=== PATIENT | female | born 1955 | race Caucasian/White ===

== ENCOUNTER 2021-08-17 14:16 | Emergency (ER) | payer BC, OTHER ==
[2021-08-17 14:56] LABS: Hematocrit 41.2 % (36.0-45.0); Lymphocytes % 8.5 % (15.3-44.8); MPV 11.1 fL (7.6-11.3); RBC Red Blood Cell Count 4.78 M/uL (3.86-4.86)
[2021-08-17 14:57] LABS: Absolute Lymphocytes (CBC) 0.9 K/uL (0.7-4.9); Basophils % 0.5 % (0-1.3)
[2021-08-17 15:08] LABS: Albumin 3.7 g/dL (3.4-5.0); Bilirubin Direct 0.4 mg/dL (0-0.2); Potassium 4.1 mmol/L (3.5-5.1)
[2021-08-17] MEDS ORDERED: MORPHINE 4 MG/ML SYR ONE (15:09)
[2021-08-17] MEDS ORDERED: NA CHLORIDE 0.9% 1,000 ML ONE (15:10)
[2021-08-17] MEDS ORDERED: ONDANSETRON 4 MG/2 ML VIAL ONE (15:10)
--- OUTSIDE RECORDS SUMMARY | 2021-08-17 15:12 | XMS REPORT | Continuity of Care Document ---
:1955 Author Organization [facility] t Address [address] Kat [address] [place] [id number] Care Team Providers Name Role Phone Pcp, Does Not Have A Primary Care Physician Frantz COREA, T Attending Clinician Unavailable Provider, [facility] Attending Clinician Unavailable Ralph JOHNSON Attending Clinician RALPH Attending Clinician Unavailable Doctor Unassigned, Name Attending Clinician Unavailable Payers Payer Name Policy Type Policy Number Effective Date Expiration Date S ource Problems Condition Condition Condition Status Onset Resolution Last Treating Co mments Source Name Details Category Date Date Treatment Clinician Date No known No known Disease Unive rs active active ity of problems problems [facility] Allergies, Adverse Reactions, Alerts Allergy Allergy Status Severity Reaction(s) Onset Inactive Treating Comm ents Source Name Type Date Date Clinician Septra Propensi Active Hives Univers I.V. ty to 05-15 ity of adverse 00:00: [place] reaction 00 [facility]ly [facility] SEPTRA DRUG Active High Hives Univers I.V. 05-15 ity of 00:00: [place] 00 [facility] TERBINAF DRUG Active Med Hives Univers INE INGREDI 9 ity of 00:00: [place] 00 [facility] Terbinaf Propensi Active Hives Univer s ine ty to 05-15 ity of adverse 00:00: [place] reaction 00 [facility]ly [facility] NO KNOWN Drug Active Univers ALLERGIE Class ity of S [facility] Social History Social Habit Start Date Stop Date Quantity Comments Source Exposure to Not sure [facility] SARS-CoV-2 (event) Medica l Branch Sex Ass[birth year] At [birth year] [facility] [place] 00:00:00 00:00:00 Medical Branch Smoking Status Start Date Stop Date Source Unknown if ever smoked [facility] Medications Ordered Filled Start Stop Current Ordering Indication Dosage Frequency Signature Comments Components Source Medication Medication Date Date Medication? Clinician (SIG) Name Name ATENOLOL Yes 75mg Take 75 mg Uni vers ORAL 9-05 by mouth. ity of 15:08: [address] Thyroid, Yes 120mg Take 120 Univ ers Pork, (EMERGENCY MANAGEMENT DIRECTOR 9-05 mg by ity of THYROID) 15:08: mouth. [place] 120 mg 52 Medical tablet Branch ATENOLOL Yes 75mg Take 75 mg Uni vers ORAL 9-05 by mouth. ity of 15:08: [address] Thyroid, Yes 120mg Take 120 Univ ers Pork, (EMERGENCY MANAGEMENT DIRECTOR 9-05 mg by ity of THYROID) 15:08: mouth. [place] 120 mg 52 Medical tablet Branch ATENOLOL Yes 75mg Take 75 mg Uni vers ORAL 9-05 by mouth. ity of 15:08: [address] Thyroid, Yes 120mg Take 120 Univ ers Pork, (EMERGENCY MANAGEMENT DIRECTOR 9-05 mg by ity of THYROID) 15:08: mouth. [place] 120 mg 52 Medical tablet Branch Vital Signs Vital Name Observation Time Observation Value Comments Source Systolic blood 2021-05-15 15:07:00 147 mm[Hg] Univer sity of pressure [facility] Diastolic blood 2021-05-15 15:07:00 83 mm[Hg] Unive rsity [facility] [place] Heart rate 2021-05-15 15:07:00 97 /min [facility] Body temperature 2021-05-15 15:07:00 37.22 [facility]relis [facility] Res[facility] rate 2021-05-15 15:07:00 20 /min [facility] Body height 2021-05-15 15:07:00 160 cm [facility] Body weight 2021-05-15 15:07:00 56.7 kg [facility] BMI 2021-05-15 15:07:00 22.14 kg/m2 [facility] Oxygen saturation in 2021-05-15 15:07:00 97 /min [facility] Arterial blood by [facility] Pulse oximetry [place] Procedures Procedure Date / Time Performed Performing Clinician Sour e ASSIGNMENT OF BENEFITS 2021-05-15 14:47:59 Doctor Unassigned, No [facility] Encounters Start End Encounter Admission Attending Care Care Encounter Source Date/Time Date/Time Type Type Clinicians Facility Department ID 2021-05-16 2021-05-16 Letter VALERIA Landry [id number] Univers 00:00:00 00:00:00 (Out) Chloe SANDOVAL [id number] [facility] [id number] Master as [phone] [facility] 019 Branch 2021-05-15 2021-05-15 Urgent Provider, Saurav [facility] [id number] Univers 09:52:23 10:34:09 Juan Diego Goff [facility] [id number] ity of [place] [id number] Master as Mendez?Blea [phone] [address] Medical Office Building 2021-05-15 2021-05-15 [facility] [id number] Univers 10:00:00 10:00:00 JUAN DIEGO ity [facility] 2021-05-15 2021-05-15 Orders Doctor SHAW [id number] Univers 00:00:00 00:00:00 Only UnassignedJOSYY [id number] ity of [place] [facility] [id number] Master as [phone] [facility] 009 Branch 2021-05-15 2021-05-15 Letter Doctor SHAW [id number] Univers 00:00:00 00:00:00 (Out) Unassigned, JAIME [id number] ity of [place] [facility] [id number] Master as [phone] [facility] 044 Branch 2021-05-15 2021-05-15 Letter Doctor SHAW [id number] Univers 00:00:00 00:00:00 (Out) Unassigned, JAIME [id number] ity of [place] [facility] [id number] Master as [phone] [facility] 044 Branch Results This patient has no known results.
--- NOTE | 2021-08-17 15:35 | RAD REPORT ---
EXAM DESCRIPTION: CTStone Protocol - 08/17/2021 3:22 pm CLINICAL HISTORY: FLANK PAIN COMPARISON: No comparisons TECHNIQUE: CT of the abdomen and pelvis was performed. All CT scans are performed using dose optimization technique as appropriate and may include automated exposure control or mA/KV adjustment according to patient size. FINDINGS: Lower chest: Probable mitral annuloplasty. Cardiomegaly. Liver: No acute abnormality or suspicious lesions. Biliary: No biliary ductal dilatation. Stomach: No significant focal abnormality. Duodenum: No significant focal abnormality. Pancreas: No significant abnormality. Spleen: No significant abnormality. Adrenal: No suspicious lesions. Kidney/ureter: Moderate left-sided hydronephrosis is present. This extends to the UPJ. No renal calcu li. No ureteral calculi or dilatation. Retroperitoneum: No retroperitoneal adenopathy. Vascular: No aneurysm. Bowel: No significant focal abnormality. Peritoneum: No ascites or free air. Bladder: Grossly unremarkable. Reproductive: No adnexal masses. Bones: No acute fracture. Disc height loss at L5-S1 . Other: n/a IMPRESSION: Moderate left-sided hydronephrosis with transition at the left ureteropelvic junction. N o obstructing stone or mass is appreciated. This could be secondary to a stricture or occult mass. Re commend urologic referral/consultation.
[2021-08-17 16:16] LABS: Urine Blood Trace-intact (Negative); Urine Glucose Negative (Negative); Urine Protein Negative (Negative); Urine Specific Gravity 1.025 (1.005-1.030)
--- NOTE | 2021-08-17 16:35 | ER ---
Nurse's Notes [facility] Name: Shobha Darden Age: 66 yrs Sex: Female : 1955 Arrival Date: 08/17/2021 Time: 14:21 Bed 15 Private MD: Diagnosis: Unspecified hydronephrosis-moderate left sided Presentation: 08/17 14:25 Chief complaint: Patient states: left sided flank pain radiating to the abdomen causing jh5 vomiting. Pt doubled over in pain. Coronavirus screen: Vaccine status: Patient reports receiving the 2nd dose of the covid vaccine. Client denies travel out of the [place] in the last 14 days. Ebola Screen: Patient negative for fever greater than or equal to 101.5 degrees Fahrenheit, and additional compatible Ebola Virus Disease symptoms Patient denies exposure to infectious person. Patient denies travel to an Ebola-affected area in the 21 days before illness onset. No symptoms or risks identified at this time. Initial Sepsis Screen: Does the patient meet any 2 criteria? No. Patient's initial sepsis screen is negative. Does the patient have a suspected source of infection? No. Patient's initial sepsis screen is negative. Risk Assessment: Do you want to hurt yourself or someone else? Patient reports no desire to harm self or others. Onset of symptoms was August 17, 2021 at 04:00. 14:25 Method Of Arrival: Ambulatory [facility] 14:25 Acuity: LEONORA 3 jh5 Triage Assessment: 14:32 General: Appears distressed, uncomfortable, slender, well groomed, well developed, well jh5 nourished, Behavior is cooperative, appropriate for age, anxious. Pain: Complains of pain in back and abdomen. Historical: - Allergies: 14:30 Lamisil; jh5 14:30 Sulfacetamide Sodium; jh5 - Immunization history:: Adult Immunizations. - Social history:: Smoking status: Patient denies any tobacco usage or history of. Screenin:32 Abuse screen: Denies threats or abuse. Denies injuries from another. Nutritional 5 screening: No deficits noted. Tuberculosis screening: No symptoms or risk factors identified. Fall Risk None identified. Assessment: 15:19 General: Appears in no apparent distress. uncomfortable, Behavior is calm, cooperative, jd3 appropriate for age. Pain: Complains of pain in left flank Quality of pain is described as tender. Neuro: Level of Consciousness is awake, alert, obeys commands, Oriented to person, place, time, situation. Cardiovascular: Capillary refill < 3 seconds Patient's skin is warm and dry. Respiratory: Airway is patent Respiratory effort is even, unlabored, Respiratory pattern is regular, symmetrical, Denies cough, shortness of breath. GI: Abdomen is flat, non-distended, Abd is soft X 4 quads Reports upper abdominal pain, nausea, vomiting. : No signs and/or symptoms were reported regarding the genitourinary system. EENT: No signs and/or symptoms were reported regarding the EENT system. Derm: Skin is intact, Skin is dry, Skin is normal, Skin temperature is warm. Musculoskeletal: Circulation, motion, and sensation intact. Range of motion: intact in all extremities. 16:25 Reassessment: Patient appears in no apparent distress at this time. No changes from [facility] previously documented assessment. Patient and/or family updated on plan of care and expected duration. Pain level reassessed. Patient is alert, oriented x 3, equal unlabored respirations, skin warm/dry/pink. 16:59 Reassessment: Patient appears in no apparent distress at this time. Patient and/or jd3 family updated on plan of care and expected duration. Pain level reassessed. Patient is alert, oriented x 3, equal unlabored respirations, skin warm/dry/pink. even and steady gait upon discharge. reported understanding of discharge instructions. Vital Signs: 14:25 BP 145 / 91; Pulse 51; Resp 18; Temp 98.6; Pulse Ox 99% ; Weight 54.43 kg; Height 5 ft. 5 3 in. (160.02 cm); 16:21 BP 140 / 70 Supine; Pulse 73; Resp 18 S; Temp 98.1(O); Pulse Ox 100% ; al4 16:25 BP 140 / 70; Pulse 85; Resp 17 S; Pulse Ox 100% on R/A; jd3 14:25 Body Mass Index 21.26 (54.43 kg, 160.02 cm) [facility] ED Course: 14:21 Patient arrived in ED. mr 14:30 Triage completed. [facility] 14:32 Arm band placed on right wrist. [facility] 14:35 Nava Purvis FNP-C is PHCP. kb 14:35 Mishra, Setul, MD is Attending Physician. kb 15:06 Al Palmer, RN is Primary Nurse. jd3 15:17 IV is patent, is intact, with fluids infusing freely, with good blood return, 20 G jd3 right AC. 15:18 Patient has correct armband on for positive identification. Bed in low position. Call jd3 light in reach. Side rails up X 1. Adult w/ patient. Pulse ox on. NIBP on. 15:22 CT Stone Protocol In Process Unspecified. EDMS 16:35 Taz Salgado MD is Referral Physician. kb 17:00 No provider procedures requiring assistance completed. IV discontinued, intact, jd3 bleeding controlled, No redness/swelling at site. Pressure dressing applied. Administered Medications: 15:21 Drug: Zofran (Ondansetron) 4 mg Route: IVP; Site: right antecubital; jd3 16:20 Follow up: Response: No adverse reaction jd3 15:21 Drug: morphine 4 mg Route: IVP; Site: right antecubital; jd3 16:20 Follow up: Response: No adverse reaction; RASS: Alert and Calm (0) jd3 15:21 Drug: NS 0.9% 1000 ml Route: IV; Rate: 1000 ml; Site: right antecubital; jd3 16:20 Follow up: Response: No adverse reaction; IV Status: Completed infusion jd3 16:51 Drug: Ketorolac 15 mg Route: IVP; Site: right antecubital; jd3 17:01 Follow up: Response: No adverse reaction jd3 Outcome: 16:35 Discharge ordered by . kb 17:00 Discharged to home ambulatory, with family. jd3 17:00 Condition: stable 17:00 Discharge instructions given to patient, family, Instructed on discharge instructions, follow up and referral plans. medication usage, Demonstrated understanding of instructions, follow-up care, Prescriptions given X 1. 17:02 Patient left the ED. jd3 Signatures: Dispatcher [employer] EDOK Nava Purvis, BARBC BAKERY MACHINE MECHANIC SUPERVISOR-Elisha Christine Magaña Al Palmer, RN RN jd3 Rosanna Loera RN RN jh5 Omar Torres Corrections: (The following items were deleted from the chart) 14:31 14:30 Allergies: Lamictal; jh5 jh5
--- NOTE | 2021-08-17 16:35 | EDPHYS ---
Physician Documentation [facility] Name: Shobha Darden Age: 66 yrs Sex: Female : 1955 Arrival Date: 08/17/2021 Time: 14:21 Bed 15 Private MD: ED Physician Angie Mishra HPI: 08/17 16:34 This 66 yrs old Female presents to ER via Ambulatory with complaints of Back Pain, kb Vomiting. 16:34 The patient complains of pain in the left flank. The pain does not radiate. Onset: The kb symptoms/episode began/occurred today, at 04:00. Modifying factors: The symptoms are alleviated by nothing. the symptoms are aggravated by nothing. Associated signs and symptoms: Pertinent positives: nausea, vomiting, Pertinent negatives: fever. Severity of pain: At its worst the pain was moderate in the emergency department the pain is unchanged. The patient has not experienced similar symptoms in the past. The patient has not recently seen a physician. Historical: - Allergies: 14:30 Lamisil; jh5 14:30 Sulfacetamide Sodium; 5 - Immunization history:: Adult Immunizations. - Social history:: Smoking status: Patient denies any tobacco usage or history of. ROS: 16:33 Constitutional: Negative for fever, chills, and weight loss. kb 16:33 Abdomen/GI: Positive for nausea and vomiting, Negative for abdominal pain, diarrhea. 16:33 Back: Positive for flank pain, on the left. 16:33 All other systems are negative. Exam: 16:33 Constitutional: This is a well developed, well nourished patient who is awake, alert, kb and in no acute distress. Head/Face: Normocephalic, atraumatic. ENT: Moist Mucous membranes Respiratory: Respirations even and unlabored. No increased work of breathing. Talking in full sentences Abdomen/GI: Soft, non-tender. No distention Skin: Warm, dry with normal turgor. Normal color. MS/ Extremity: Pulses equal, no cyanosis. Neurovascular intact. Full, normal range of motion. Neuro: Awake and alert, GCS 15, oriented to person, place, time, and situation. Moves all extremities. Normal gait. Psych: Awake, alert, with orientation to person, place and time. Behavior, mood, and affect are within normal limits. 16:33 Back: pain, that is moderate, of the left flank, CVA tenderness, that is mild, is noted on the left. Vital Signs: 14:25 BP 145 / 91; Pulse 51; Resp 18; Temp 98.6; Pulse Ox 99% ; Weight 54.43 kg; Height 5 ft. jh5 3 in. (160.02 cm); 16:21 BP 140 / 70 Supine; Pulse 73; Resp 18 S; Temp 98.1(O); Pulse Ox 100% ; al4 16:25 BP 140 / 70; Pulse 85; Resp 17 S; Pulse Ox 100% on R/A; jd3 14:25 Body Mass Index 21.26 (54.43 kg, 160.02 cm) jh5 MDM: 14:36 Patient medically screened. kb 16:32 Data reviewed: vital signs, nurses notes. Data interpreted: Pulse oximetry: on room air kb is 100 %. Interpretation: normal. Counseling: I had a detailed discussion with the patient and/or guardian regarding: the historical points, exam findings, and any diagnostic results supporting the discharge/admit diagnosis, lab results, radiology results, the need for outpatient follow up, a urologist, to return to the emergency department if symptoms worsen or persist or if there are any questions or concerns that arise at home. Physician consultation: Taz Salgado MD was contacted at 16:33, regarding consult, patient's condition, and will see patient in office. 08/17 14:35 Order name: Basic Metabolic Panel; Complete Time: 15:19 kb 08/17 14:35 Order name: CBC with Diff kb 08/17 14:35 Order name: Hepatic Function; Complete Time: 15:19 kb 08/17 14:35 Order name: Lipase; Complete Time: 15:19 kb 08/17 14:39 Order name: CT Stone Protocol; Complete Time: 15:37 kb 08/17 16:16 Order name: Urine Dipstick-Ancillary; Complete Time: 16:17 EDMS 08/17 14:35 Order name: IV Saline Lock; Complete Time: 15:05 kb 08/17 14:35 Order name: Labs collected and sent; Complete Time: 15:05 kb 08/17 15:20 Order name: Urine Dipstick-Ancillary (obtain specimen); Complete Time: 16:16 kb Administered Medications: 15:21 Drug: Zofran (Ondansetron) 4 mg Route: IVP; Site: right antecubital; jd3 16:20 Follow up: Response: No adverse reaction jd3 15:21 Drug: morphine 4 mg Route: IVP; Site: right antecubital; jd3 16:20 Follow up: Response: No adverse reaction; RASS: Alert and Calm (0) jd3 15:21 Drug: NS 0.9% 1000 ml Route: IV; Rate: 1000 ml; Site: right antecubital; jd3 16:20 Follow up: Response: No adverse reaction; IV Status: Completed infusion jd3 16:51 Drug: Ketorolac 15 mg Route: IVP; Site: right antecubital; jd3 17:01 Follow up: Response: No adverse reaction jd3 Disposition: 22:33 Co-signature as Attending Physician, Angie Mishra MD I agree with the assessment and sp3 plan of care. Disposition Summary: 08/17/21 16:35 Discharge Ordered Location: Home kb Condition: Stable kb Diagnosis - Unspecified hydronephrosis - moderate left sided kb Followup: kb - With: Emergency Department - When: As needed - Reason: Worsening of condition Followup: kb - With: Private Physician - When: 2 - 3 days - Reason: Recheck today's complaints, Continuance of care, Re-evaluation by your physician Followup: kb - With: Taz Salgado MD - When: 1 - 2 days - Reason: Recheck today's complaints Discharge Instructions: - Discharge Summary Sheet kb - Hydronephrosis kb Forms: - Medication Reconciliation Form kb - Thank You Letter kb - Antibiotic Education kb - Prescription Opioid Use kb - Work release form jd3 Prescriptions: - Diclofenac Sodium 75 mg Oral tablet,delayed release (DR/EC) - take 1 tablet by ORAL route 2 times per day As needed; 30 tablet; Refills: 0, kb Product Selection Permitted Signatures: Dispatcher [employer] Nava Taylor, Al Carrillo RN RN Angie Brown MD MD sp3 Rosanna Loera RN RN 5 Corrections: (The following items were deleted from the chart) 14:31 14:30 Allergies: Lamictal; 5 5
[2021-08-17] MEDS ORDERED: KETOROLAC 30 MG/ML INJ ONE (16:45)
[2021-08-17 17:21] VITALS: BP 140/70; TEMP 98.1; O2SAT 100
[2021-08-17 17:26] LABS: Blood Morphology Comment NOT SEEN (NOT SEEN); Platelet Estimate ADEQ; White Blood Cell Scan OK (OK)
== END 2021-08-17 17:02 | disposition home or self-care (01) ==
LOC: ER 14:16
DX: N13.30 Unspecified hydronephrosis (principal); Z88.8 Allergy status to other drugs, medicaments and biological substances
CPT/HCPCS: 96361; 85025; 80048; 36415; 80076; 81003; 83690; 76377; 74176; 96375; 96374; 99284; J7030; J2405